=== PATIENT | female | born 1945 | race Hispanic/Latino ===

== ENCOUNTER → 2019-12-27 | Outpatient (CLI) | payer MEDICARE ==
[~2019-12-27] MED LIST: ALEN70TA10 PO; ASPI-556 PO; ATOR40TA69 PO; BACL5TAB PO; BIMA12.5OS OU; BUPR150T8 PO; DONE10TA43 PO; LEVO175T9 PO; LOSA25TA41 PO; NORT25CA3 PO; TRAM50TA4 PO
== END | disposition home or self-care (01) ==
LOC: RAH 13:34
PROVIDERS: ATTEND Family Medicine
DX: M25.551 Pain in right hip (principal); M79.605 Pain in left leg; M79.604 Pain in right leg; M47.816 Spondylosis without myelopathy or radiculopathy, lumbar region
CPT/HCPCS: 73502; 93970

== ENCOUNTER → 2020-09-17 | Outpatient (CLI) | payer MEDICARE ==
[~2020-09-17] MED LIST changes: -ALEN70TA10 PO; +ALEN70TA80 PO
== END | disposition home or self-care (01) ==
LOC: RAH 13:22
PROVIDERS: ATTEND Family Medicine
DX: I70.293 Other atherosclerosis of native arteries of extremities, bilateral legs (principal)
CPT/HCPCS: 93925

== ENCOUNTER 2022-04-28 08:17 | Day surgery (SDC) | payer OTHER, MEDICARE ==
[2022-04-26 14:28] LABS: BASOPHILS % (AUTO) 1.3 % (0.0-5.0); EOSINOPHILS % (AUTO) 1.4 % (0.0-8.0); HEMATOCRIT 37.8 % (36-48); LYMPHOCYTES % (AUTO) 21.2 % (21.0-51.0); MEAN CORPUSCULAR HEMOGLOBIN 28.6 pg (27.0-33.0); MEAN CORPUSCULAR HGB CONC 32.3 g/dL (32.0-36.0); MEAN CORPUSCULAR VOLUME 88.7 fL (79-99); MONOCYTES % (AUTO) 7.6 % (3.0-13.0); NEUTROPHILS % (AUTO) 68.2 % (40.0-77.0); PLATELET COUNT (AUTO) 301 K/uL (130-400); RED BLOOD CELL COUNT(AUTO) 4.26 MIL/uL (4.00-5.50); WHITE BLOOD COUNT (AUTO) 7.9 K/uL (4.8-10.8)
[2022-04-26 14:29] LABS: APPEARANCE,URINE CLEAR (CLEAR); BILIRUBIN,URINE NEGATIVE (NEGATIVE); COLOR,URINE YELLOW (YELLOW); GLUCOSE, URINE (UA) NEGATIVE (NEGATIVE); KETONES,URINE NEGATIVE (NEGATIVE); LEUKOCYTE ESTERASE ,URINE NEGATIVE Leu/uL (NEGATIVE); NITRATE,URINE NEGATIVE (NEGATIVE); OCCULT BLOOD,URINE NEGATIVE (NEGATIVE); PH,URINE 5.5 (5.0-8.0); PROTEIN,URINE NEGATIVE (NEGATIVE); UROBILINOGEN,URINE 0.2 mg/dL (0.2-1.0)
[2022-04-26 14:43] LABS: INR 0.96 (0.85-1.15); PROTHROMBIN TIME 10.5 SEC (9.6-11.6)
[2022-04-26 14:44] LABS: CREATININE 1.4 mg/dL (0.5-1.5); POTASSIUM 4.7 mmol/L (3.5-5.1)
[2022-04-26 14:45] LABS: PARTIAL THROMBOPLASTIN TIME 28.5 SEC (26.3-35.5)
[2022-04-26 14:54] LABS: B-TYPE NATRIURETIC PEPTIDE 497 pg/mL (0-100)
[2022-04-27 09:06] VITALS: BP 146/72
[~2022-04-28] VITALS: Ht 149.9 cm; Wt 47.8 kg
[2022-04-28] VITALS (9 sets, daily range): BP systolic 112–158; BP diastolic 66–88
[~2022-04-28 08:17] MED LIST changes: +0.9% NACL 500ML IV.SOLN 500 ML IV SCH; +AEC81 PO; -ASPI-556 PO; -ATOR40TA69 PO; -BACL5TAB PO; -BIMA12.5OS OU; +BRIM5DRO4 OU; +BUPR-113 PO; -BUPR150T8 PO; +CILO100T3 PO; +CLOP75TA32 PO; +CYAN10007 IJ; +DOCU-116 PO; +EZET10TA48 PO; +FURO20TA4 PO; +GABA300C PO; +LACT10SO5 PO; +LATA2.5D14 OU; -LEVO175T9 PO; +LEVO88TA7 PO; +LORA10TA7 PO; -LOSA25TA41 PO; +MAGN400T40 PO; -NORT25CA3 PO; +PANT40TA54 PO; +ROSU20TA31 PO
[2022-04-28] MEDS ORDERED: 0.9%NACL 1000ML 1,000 ML IV ONE (08:40)
[2022-04-28] MEDS ORDERED: SODIUM BICARB 50MEQ 50ML VIAL 50 ML ONE (09:33)
[2022-04-28] MEDS ORDERED: HEPARIN 10,000 UNIT/10ML (1,000 UNIT/ML) VIAL ONE (09:34)
[2022-04-28] MEDS ORDERED: MIDAZOLAM HCL 1 MG/ML 2ML VIAL ONE (09:34)
[2022-04-28] MEDS ORDERED: NITROGLYCERIN 50MG VIAL ONE (09:34)
[2022-04-28] MEDS ORDERED: IODIXANOL 320 MG/ML 100 ML VIAL ONE (09:34)
[2022-04-28] MEDS ORDERED: LIDOCAINE HCL 400MG/20ML VIAL ONE (09:34)
[2022-04-28] MEDS ORDERED: FENTANYL CITRATE PF 50 MCG/1 ML 2ML VIAL ONE (09:34)
[2022-04-28] MEDS ORDERED: 0.9% NACL 500ML IV.SOLN 500 ML IV SCH (11:30)
== END 2022-04-28 15:30 | disposition home or self-care (01) ==
LOC: DAH 08:17
PROVIDERS: ATTEND Internal Medicine Cardiovascular Disease
DX: I70.221 Atherosclerosis of native arteries of extremities with rest pain, right leg (principal); E11.51 Type 2 diabetes mellitus with diabetic peripheral angiopathy without gangrene; I11.0 Hypertensive heart disease with heart failure; I50.42 Chronic combined systolic (congestive) and diastolic (congestive) heart failure; I45.10 Unspecified right bundle-branch block; E78.5 Hyperlipidemia, unspecified; E03.9 Hypothyroidism, unspecified; I25.2 Old myocardial infarction; M19.90 Unspecified osteoarthritis, unspecified site; Z79.890 Hormone replacement therapy; Z79.82 Long term (current) use of aspirin; Z79.01 Long term (current) use of anticoagulants; Z79.899 Other long term (current) drug therapy; Z98.890 Other specified postprocedural states; Z90.710 Acquired absence of both cervix and uterus; Z98.41 Cataract extraction status, right eye; Z98.42 Cataract extraction status, left eye
CPT/HCPCS: 80048; 83880; 85025; 85610; 85730; 81003; 36415; 71045; 93005; 75710; 36246; C1894 ×2; C1760; C1769; J3010; J3490 ×3; J7030; J1644 ×2; J2250; Q9967; A4215; A4222; A4221; A4663; A4216; A4606; A4223 ×3; 96360; 96361; 99156; 99157

== ENCOUNTER 2022-06-07 11:30 | Inpatient (IN) | payer OTHER, MEDICARE ==
[~2022-06-07] VITALS: Ht 149.9 cm; Wt 49.7 kg
[~2022-06-07 11:30] MED LIST changes: -0.9% NACL 500ML IV.SOLN 500 ML IV SCH; -LACT10SO5 PO
[2022-06-07 13:09] LABS: HEMATOCRIT 39.6 % (36-48); MEAN CORPUSCULAR HEMOGLOBIN 30.3 pg (27.0-33.0); MEAN CORPUSCULAR HGB CONC 32.3 g/dL (32.0-36.0); MEAN CORPUSCULAR VOLUME 93.8 fL (79-99); RED BLOOD CELL COUNT(AUTO) 4.22 MIL/uL (4.00-5.50); RED CELL DISTRIBUTION WIDTH 16.1 % (11.0-15.5); WHITE BLOOD COUNT (AUTO) 5.8 K/uL (4.8-10.8)
[2022-06-07 13:19] LABS: INR 0.93 (0.85-1.15); PROTHROMBIN TIME 9.9 SEC (9.6-11.6)
[2022-06-07 13:20] LABS: PARTIAL THROMBOPLASTIN TIME 26.9 SEC (26.3-35.5)
[2022-06-07 13:31] VITALS: BP 160/77
[2022-06-07 13:34] LABS: CREATININE 1.1 mg/dL (0.5-1.5); POTASSIUM 4.2 mmol/L (3.5-5.1)
[2022-06-11] VITALS (22 sets, daily range): BP systolic 102–168; BP diastolic 54–94
[2022-06-11] MEDS ORDERED: CEFAZOLIN SODIUM 1 GM VIAL ONE (07:00)
[2022-06-11] MEDS ORDERED: 0.9%NACL 1000ML 1,000 ML IV ONE (07:44)
[2022-06-11] MEDS ORDERED: ACETAMINOPHEN 325 MG TAB PO PRN (08:00)
[2022-06-11] MEDS ORDERED: ONDANSETRON 4MG INJ IVP PRN (08:00)
[2022-06-11] MEDS: CEFAZOLIN SODIUM 2 GM VIAL ONE ×2 (08:00→08:47)
[2022-06-11] MEDS ORDERED: MAGNESIUM HYDROXIDE 30 ML/UDCUP PO PRN (08:00)
[2022-06-11] MEDS ORDERED: GLYCOPYRROLATE 1 MG/5 ML SYRINGE ONE (08:35)
[2022-06-11] MEDS ORDERED: ONDANSETRON 4MG INJ ONE (08:35)
[2022-06-11] MEDS ORDERED: PROPOFOL 10 MG/ML 20ML VIAL IV ONE (08:35)
[2022-06-11] MEDS ORDERED: LIDOCAINE PF 100MG/5ML (2%) SYRINGE 5ML ONE ×2 (08:35→08:37)
[2022-06-11] MEDS ORDERED: DEXAMETHASONE SOD PHOSPHATE 10MG/ML 1ML VIAL ONE (08:35)
[2022-06-11] MEDS ORDERED: FENTANYL CITRATE PF 50 MCG/1 ML 2ML VIAL ONE (08:35)
[2022-06-11] MEDS ORDERED: SUCCINYLCHOLINE CHLORIDE 20 MG/ML 10 ML VIAL ONE (08:35)
[2022-06-11] MEDS ORDERED: NEOSTIGMINE 5MG/5ML SYR IV ONE (08:35)
[2022-06-11] MEDS ORDERED: ROCURONIUM 10MG/1ML SYR 10 MG/ML ML ONE (08:36)
[2022-06-11] MEDS ORDERED: NON-FORMULARY MEDICATION 1 EACH (Donepezil HCl 10 MG) PO SCH (09:00)
[2022-06-11] MEDS: ASPIRIN 81 MG EC TAB PO SCH (09:00)
[2022-06-11] MEDS: BRIMONIDINE TARTRATE 0.2% 5 ML BOTTLE OU SCH ×2 (09:00→20:29)
[2022-06-11] MEDS: GABAPENTIN 300 MG CAPSULE PO SCH ×3 (09:00→20:28)
[2022-06-11] MEDS: FUROSEMIDE 20 MG TABLET PO SCH (09:00)
[2022-06-11] MEDS: PANTOPRAZOLE 40 MG TAB DR PO SCH (09:00)
[2022-06-11] MEDS: DOCUSATE SODIUM 100 MG CAP PO SCH (09:00)
[2022-06-11] MEDS: BUPROPION HCL 150 MG TABLET.SA PO SCH (09:00)
[2022-06-11] MEDS: DONEPEZIL HCL 5 MG TAB PO SCH (09:00)
[2022-06-11] MEDS: CILOSTAZOL 100 MG TAB PO SCH ×2 (09:00→20:27)
[2022-06-11] MEDS: CLOPIDOGREL 75MG TAB PO SCH (09:00)
[2022-06-11] MEDS ORDERED: MEPERIDINE-PF 25 MG/ML SYG ONE (10:26)
[2022-06-11] MEDS: MORPHINE 2 MG SYG IVP PRN ×2 (12:43→18:47)
[2022-06-11] MEDS: TRAMADOL HCL 50 MG TABLET PO PRN ×2 (14:03→15:05)
[2022-06-11] MEDS: CEFAZOLIN SODIUM 1 GM VIAL IVP SCH (17:33)
[2022-06-11] MEDS: MAGNESIUM OXIDE 400 MG TABLET PO SCH (20:28)
[2022-06-11] MEDS: EZETIMIBE 10 MG TAB PO SCH (20:28)
[2022-06-11] MEDS: LORATADINE 10 MG TABLET PO SCH (20:28)
[2022-06-11] MEDS: LATANOPROST 2.5 ML DROPS OU SCH (20:29)
[2022-06-11] MEDS: (Rosuvastatin Calcium 20 MG) PO SCH (20:30)
[2022-06-11] MEDS ORDERED: NON-FORMULARY MEDICATION 1 EACH (Magnesium Oxide (Magnesium) 400 MG) PO SCH (21:00)
[2022-06-12] VITALS (16 sets, daily range): BP systolic 97–155; BP diastolic 38–81
[2022-06-12] MEDS: CEFAZOLIN SODIUM 1 GM VIAL IVP SCH ×2 (01:21→09:00)
[2022-06-12 04:22] LABS: HEMATOCRIT 31.4 % (36-48); MEAN CORPUSCULAR HEMOGLOBIN 30.5 pg (27.0-33.0); MEAN CORPUSCULAR HGB CONC 31.8 g/dL (32.0-36.0); MEAN CORPUSCULAR VOLUME 95.7 fL (79-99); RED BLOOD CELL COUNT(AUTO) 3.28 MIL/uL (4.00-5.50); RED CELL DISTRIBUTION WIDTH 15.9 % (11.0-15.5); WHITE BLOOD COUNT (AUTO) 6.6 K/uL (4.8-10.8)
[2022-06-12 04:38] LABS: CREATININE 1.2 mg/dL (0.5-1.5); POTASSIUM 3.8 mmol/L (3.5-5.1)
[2022-06-12] MEDS: LEVOTHYROXINE 88 MCG TABLET PO SCH (06:40)
[2022-06-12] MEDS: TRAMADOL HCL 50 MG TABLET PO PRN ×3 (07:04→21:19)
[2022-06-12] MEDS ORDERED: NON-FORMULARY MEDICATION 1 EACH (Levothyroxine Sodium 88 MCG) PO SCH (07:30)
[2022-06-12] MEDS: PANTOPRAZOLE 40 MG TAB DR PO SCH (08:32)
[2022-06-12] MEDS: FUROSEMIDE 20 MG TABLET PO SCH (08:32)
[2022-06-12] MEDS: DOCUSATE SODIUM 100 MG CAP PO SCH (08:32)
[2022-06-12] MEDS: DONEPEZIL HCL 5 MG TAB PO SCH (08:32)
[2022-06-12] MEDS: ASPIRIN 81 MG EC TAB PO SCH (08:32)
[2022-06-12] MEDS: GABAPENTIN 300 MG CAPSULE PO SCH ×3 (08:32→21:14)
[2022-06-12] MEDS: BUPROPION HCL 150 MG TABLET.SA PO SCH (08:33)
[2022-06-12] MEDS: CLOPIDOGREL 75MG TAB PO SCH (08:33)
[2022-06-12] MEDS: CILOSTAZOL 100 MG TAB PO SCH ×2 (08:33→21:14)
[2022-06-12] MEDS: BRIMONIDINE TARTRATE 0.2% 5 ML BOTTLE OU SCH ×2 (08:35→21:16)
[2022-06-12] MEDS ORDERED: CEFAZOLIN SODIUM 2 GM VIAL ONE (09:28)
[2022-06-12] MEDS: (Rosuvastatin Calcium 20 MG) PO SCH (21:00)
[2022-06-12] MEDS: LORATADINE 10 MG TABLET PO SCH (21:14)
[2022-06-12] MEDS: MAGNESIUM OXIDE 400 MG TABLET PO SCH (21:14)
[2022-06-12] MEDS: EZETIMIBE 10 MG TAB PO SCH (21:14)
[2022-06-12] MEDS: LATANOPROST 2.5 ML DROPS OU SCH (21:16)
[2022-06-13 00:23] VITALS: BP 107/54
[2022-06-13 05:00] VITALS: BP 100/57
[2022-06-13] MEDS: LEVOTHYROXINE 88 MCG TABLET PO SCH (05:42)
[2022-06-13 08:01] VITALS: BP 110/57
[2022-06-13] MEDS: ASPIRIN 81 MG EC TAB PO SCH (08:13)
[2022-06-13] MEDS: DONEPEZIL HCL 5 MG TAB PO SCH (08:13)
[2022-06-13] MEDS: BRIMONIDINE TARTRATE 0.2% 5 ML BOTTLE OU SCH ×2 (08:13→20:37)
[2022-06-13] MEDS: FUROSEMIDE 20 MG TABLET PO SCH (08:14)
[2022-06-13] MEDS: DOCUSATE SODIUM 100 MG CAP PO SCH (08:14)
[2022-06-13] MEDS: GABAPENTIN 300 MG CAPSULE PO SCH ×3 (08:14→20:38)
[2022-06-13] MEDS: BUPROPION HCL 150 MG TABLET.SA PO SCH (08:15)
[2022-06-13] MEDS: CLOPIDOGREL 75MG TAB PO SCH (08:15)
[2022-06-13] MEDS: PANTOPRAZOLE 40 MG TAB DR PO SCH (08:15)
[2022-06-13] MEDS: CILOSTAZOL 100 MG TAB PO SCH ×2 (08:15→20:38)
[2022-06-13 12:00] VITALS: BP 94/56
[2022-06-13] MEDS ORDERED: GABAPENTIN 300 MG CAPSULE PO SCH (14:00)
[2022-06-13] MEDS ORDERED: ENOXAPARIN SODIUM 40 MG/0.4 ML SYRINGE SQ ONE (16:00)
[2022-06-13 16:10] VITALS: BP 99/62
[2022-06-13 19:50] VITALS: BP 127/64
[2022-06-13] MEDS: (Rosuvastatin Calcium 20 MG) PO SCH (20:37)
[2022-06-13] MEDS: LATANOPROST 2.5 ML DROPS OU SCH (20:37)
[2022-06-13] MEDS: EZETIMIBE 10 MG TAB PO SCH (20:38)
[2022-06-13] MEDS: MAGNESIUM OXIDE 400 MG TABLET PO SCH (20:38)
[2022-06-13] MEDS: LORATADINE 10 MG TABLET PO SCH (20:38)
[2022-06-14 00:08] VITALS: BP 101/69
[2022-06-14 04:22] VITALS: BP 110/60
[2022-06-14 04:23] LABS: HEMATOCRIT 25.4 % (36-48); MEAN CORPUSCULAR HEMOGLOBIN 30.4 pg (27.0-33.0); MEAN CORPUSCULAR HGB CONC 33.1 g/dL (32.0-36.0); RED BLOOD CELL COUNT(AUTO) 2.76 MIL/uL (4.00-5.50); RED CELL DISTRIBUTION WIDTH 15.1 % (11.0-15.5)
[2022-06-14 04:24] LABS: CREATININE 1.1 mg/dL (0.5-1.5)
[2022-06-14] MEDS ORDERED: LIDOCAINE HCL-MPF 1% 2ML VIAL IV PRN (06:00)
[2022-06-14] MEDS ORDERED: KCL 20 MEQ ERTAB PO PRN (06:00)
[2022-06-14] MEDS ORDERED: POTASSIUM CHLORIDE 20MEQ/100ML 100 ML IV PRN (06:00)
[2022-06-14] MEDS ORDERED: POTASSIUM CHLORIDE 10% ELIXIR 20 MEQ/15 ML UDCUP PO PRN (06:00)
[2022-06-14] MEDS: LEVOTHYROXINE 88 MCG TABLET PO SCH (06:06)
[2022-06-14 08:30] VITALS: BP 121/59
[2022-06-14] MEDS ORDERED: ENOXAPARIN SODIUM 40 MG/0.4 ML SYRINGE SQ SCH (09:00)
[2022-06-14] MEDS: ASPIRIN 81 MG EC TAB PO SCH (09:13)
[2022-06-14] MEDS: BRIMONIDINE TARTRATE 0.2% 5 ML BOTTLE OU SCH (09:13)
[2022-06-14] MEDS: DONEPEZIL HCL 5 MG TAB PO SCH (09:13)
[2022-06-14] MEDS: FUROSEMIDE 20 MG TABLET PO SCH (09:13)
[2022-06-14] MEDS: DOCUSATE SODIUM 100 MG CAP PO SCH (09:13)
[2022-06-14] MEDS: GABAPENTIN 300 MG CAPSULE PO SCH ×2 (09:14→14:10)
[2022-06-14] MEDS: CLOPIDOGREL 75MG TAB PO SCH (09:14)
[2022-06-14] MEDS: CILOSTAZOL 100 MG TAB PO SCH (09:14)
[2022-06-14] MEDS: BUPROPION HCL 150 MG TABLET.SA PO SCH (09:17)
[2022-06-14] MEDS: PANTOPRAZOLE 40 MG TAB DR PO SCH (09:17)
[2022-06-14 12:10] VITALS: BP 117/67
[2022-06-14] MEDS ORDERED: DOXYCYCLINE HYCLATE 100 MG TABLET PO SCH ×2 (13:28→21:00)
== END 2022-06-14 13:00 | disposition home or self-care (01) | DRG 271 ==
LOC: EDSTATUS 11:30 → DAHIP 06-11 06:58 → 2BH 06-11 12:00 → 2DH 06-12 13:06
PROVIDERS: ADMIT Thoracic Surgery (Cardiothoracic Vascular Surgery); ATTEND Thoracic Surgery (Cardiothoracic Vascular Surgery)
PROC: 041K09Q Bypass Right Femoral Artery to Lower Extremity Artery with Autologous Venous Tissue, Open Approach (ICD-10-PCS; 2022-06-11)
PROC: 30233N1 Transfusion of Nonautologous Red Blood Cells into Peripheral Vein, Percutaneous Approach (ICD-10-PCS; 2022-06-11)
PROC: 04CK3ZZ Extirpation of Matter from Right Femoral Artery, Percutaneous Approach (ICD-10-PCS; principal; 2022-06-11 08:32)
DX: E11.51 Type 2 diabetes mellitus with diabetic peripheral angiopathy without gangrene (principal); I50.30 Unspecified diastolic (congestive) heart failure; Z20.822 Contact with and (suspected) exposure to COVID-19; I11.0 Hypertensive heart disease with heart failure; E03.9 Hypothyroidism, unspecified; E78.00 Pure hypercholesterolemia, unspecified; I25.10 Atherosclerotic heart disease of native coronary artery without angina pectoris; L97.519 Non-pressure chronic ulcer of other part of right foot with unspecified severity; Z79.02 Long term (current) use of antithrombotics/antiplatelets; Z79.82 Long term (current) use of aspirin; Z95.5 Presence of coronary angioplasty implant and graft
CPT/HCPCS: 36415; 71045; 80048; 82948; 85027; 85610; 85730; 86850; 86900; 86901; 86923; 87426; 93005; 93970; 97039; G0378; J0330; J0690; J1100; J1644; J1650; J2001; J2175; J2405; J2704; J2710; J3010; J3480; J3490; J7030; P9034

== ENCOUNTER → 2022-08-19 | Outpatient (CLI) | payer OTHER, MEDICARE ==
[~2022-08-19] MED LIST changes: -BRIM5DRO4 OU; +BRIM5DRO5 OU; +CEPH500T PO; +DOXY100C5 PO
== END | disposition home or self-care (01) ==
LOC: OIH 11:16
PROVIDERS: ATTEND Family Medicine
DX: M79.604 Pain in right leg (principal)
CPT/HCPCS: 73590

== ENCOUNTER → 2022-10-01 | Outpatient (CLI) | payer OTHER, MEDICARE ==
[~2022-10-01] MED LIST changes: -ROSU20TA31 PO; +ROSU20TA73 PO
== END | disposition home or self-care (01) ==
LOC: RAH 13:43
PROVIDERS: ATTEND Internal Medicine Cardiovascular Disease
DX: I70.201 Unspecified atherosclerosis of native arteries of extremities, right leg (principal)
CPT/HCPCS: 93926

== ENCOUNTER → 2022-10-14 | Outpatient (CLI) | payer OTHER, MEDICARE | END | disposition home or self-care (01) | LOC: RAH 11:50 | PROVIDERS: ATTEND Family Medicine | DX: I70.221 Atherosclerosis of native arteries of extremities with rest pain, right leg (principal); M79.671 Pain in right foot; M25.571 Pain in right ankle and joints of right foot | CPT/HCPCS: 73610; 73630 ==

== ENCOUNTER → 2024-01-09 | Outpatient (CLI) | payer OTHER, MEDICARE ==
[~2024-01-09] MED LIST changes: -ROSU20TA73 PO; +ROSU20TA98 PO
[2024-01-09 12:21] LABS: BASOPHILS % (AUTO) 1.5 % (0.0-5.0); EOSINOPHILS # (AUTO) 0.13 K/uL (0.00-0.70); EOSINOPHILS % (AUTO) 1.9 % (0.0-8.0); HEMATOCRIT 39.4 % (36-48); IMMATURE GRANULOCYTE ABSOLUTE 0.02 K/uL (0-1); LYMPHOCYTES # (AUTO) 1.6 K/uL (1.0-4.8); LYMPHOCYTES % (AUTO) 24.2 % (21.0-51.0); MEAN CORPUSCULAR HEMOGLOBIN 32.8 pg (27.0-33.0); MEAN CORPUSCULAR HGB CONC 33.5 g/dL (32.0-36.0); MEAN CORPUSCULAR VOLUME 97.8 fL (79-99); MONOCYTES # (AUTO) 0.6 K/uL (0.1-1.0); MONOCYTES % (AUTO) 9.2 % (3.0-13.0); NEUTROPHILS # (AUTO) 4.2 K/uL (1.8-7.7); NEUTROPHILS % (AUTO) 62.9 % (40.0-77.0); PLATELET COUNT (AUTO) 260 K/uL (130-400); RED BLOOD CELL COUNT(AUTO) 4.03 MIL/uL (4.00-5.50); RED CELL DISTRIBUTION WIDTH 12.8 % (11.0-15.5); WHITE BLOOD COUNT (AUTO) 6.7 K/uL (4.8-10.8)
[2024-01-09 13:03] LABS: ALBUMIN 3.8 g/dL (3.5-5.0); BILIRUBIN,TOTAL 0.3 mg/dL (0.2-1.0); CREATININE 1.1 mg/dL (0.5-1.0); POTASSIUM 4.6 mmol/L (3.5-5.1); TOTAL PROTEIN, SERUM 7.6 g/dL (6.0-8.3)
== END | disposition home or self-care (01) ==
LOC: LAB 11:09
PROVIDERS: ATTEND Internal Medicine Cardiovascular Disease
DX: I10 Essential (primary) hypertension (principal); E78.5 Hyperlipidemia, unspecified; I73.9 Peripheral vascular disease, unspecified
CPT/HCPCS: 36415; 80053; 80061; 85025

== ENCOUNTER → 2024-04-09 | Outpatient (CLI) | payer OTHER, MEDICARE ==
[2024-04-09 12:27] LABS: ALBUMIN 3.6 g/dL (3.5-5.0); BILIRUBIN,TOTAL 0.2 mg/dL (0.2-1.0); CREATININE 1.3 mg/dL (0.5-1.0); POTASSIUM 4.5 mmol/L (3.5-5.1); TOTAL PROTEIN, SERUM 7.2 g/dL (6.0-8.3)
== END | disposition home or self-care (01) ==
LOC: LAB 09:18
PROVIDERS: ATTEND Internal Medicine Cardiovascular Disease
DX: I10 Essential (primary) hypertension (principal); E78.5 Hyperlipidemia, unspecified; Z79.899 Other long term (current) drug therapy
CPT/HCPCS: 36415; 80053; 80061; 82306

== ENCOUNTER → 2024-09-26 | Outpatient (CLI) | payer OTHER, MEDICARE ==
--- NOTE | 2024-09-26 19:40 | HMCIMG ---
MR SHOULDER RIGHT WO HISTORY: Shoulder pain COMPARISON: None TECHNIQUE: MRI of the right shoulder was performed utilizing multiple pulse sequences in axial, coronal and sagittal planes. Patient was not given contrast through intravenous route. FINDINGS: No abnormal signal intensity is seen of the visualized bony structure. Hypertrophic degenerative changes are seen of the acromioclavicular joint. There is downward sloping of acromion in a medial to lateral direction encroaching upon the rotator cuff tendon and muscles. There are findings suggestive of complete rotator cuff tendon tear. Fluid is seen in the subacromial-subdeltoid bursa complex. The glenoid labrum is intact. Bicipital tendon is seen within its groove. No appreciable amount of joint effusion is seen. IMPRESSION: 1. Findings suggestive of complete rotator cuff tendon tear.
== END | disposition home or self-care (01) ==
LOC: RAH 13:42
PROVIDERS: ATTEND Family Medicine
DX: M19.011 Primary osteoarthritis, right shoulder (principal); M25.511 Pain in right shoulder
CPT/HCPCS: 73221